=== PATIENT | female | born 1990 | race Caucasian/White ===

== ENCOUNTER 2018-08-29 19:13 | Emergency (ER) | payer OTHER ==
[~2018-08-29] VITALS: Ht 162.6 cm; Wt 58.6 kg
[2018-08-29 19:18] VITALS: Ht 162.6 cm; Wt 58.6 kg
--- NOTE | 2018-08-29 20:55 | ERD ---
ER Documentation Chief Complaint Chief Complaint L hand/wrist swelling x 3weeks,no trauma HPI This is a 27-year-old female who was brought in by here in the emergency department with complaints of left hand/wrist swelling for about 3 weeks without trauma. Patient stated that she was sent here by the urgent care that she saw today and was told that there was very urgent that she goes to the emergency department to have an ultrasound with blood works. LMP: 08/25/2018. . Denies headache, dizziness, blurred vision, neck pain, neck stiffness, difficult swallowing, difficult breathing lying flat, shoulder pain, chest pain, back pain, vomiting, nausea, vomiting, constipation, diarrhea, urinary symptoms, loss of bowel bladder control, trauma, injury, falls, recent travel, recent long travel, recent exposure to any illness, recent antibiotic use in the restroom, fever, chills, seizures, numbness or tingling vision, calf pains. Past medical history of lupus/SLE. Surgical history: Denies. Medication: Plaqu enil. Denies smoking, use of alcoholic beverages, use of illegal drugs. ROS All systems reviewed and are negative except as per history of present illness. Medications Home Meds Active Scripts Ibuprofen* (Motrin*) 600 Mg Tab, 600 MG PO Q6H PRN for PAIN AND OR ELEVATED TEMP, #20 TAB Prov:NOEL RODRIGUEZ 08/29/18 Allergies Allergies: Coded Allergies: No Known Allergy (Unverified , 08/29/18) PMhx/Soc History of Surgery: Yes (bilateral eye surgery) Hx Miscellaneous Medical Probl: Yes (lupus) Hx Alcohol Use: No Hx Substance Use: No Hx Tobacco Use: No Smoking Status: Never smoker Physical Exam Vitals Vital Signs Date Temp Pulse Resp B/P (MAP) Pulse Ox O2 O2 Flow FiO2 Time Delivery Rate 08/29/18 98.5 74 18 110/75 19 Room Air 22:57 (87) 08/29/18 98.5 80 18 142/88 98 19:18 (106) Physical Exam Const: No acute distress Head: Atraumatic Eyes: Normal Conjunctiva ENT: Normal External Ears, Nose and Mouth. Neck: Full range of motion. No meningismus. Resp: Clear to auscultation bilaterally Cardio: Regular rate and rhythm, no murmurs Abd: Soft, non tender, non distended. Normal bowel sounds Skin: No petechiae or rashes Back: No midline or flank tenderness Ext: No cyanosis, or edema. Mild swelling to left upper extremity. Left radial pulse is within normal limits. Has good and full function of her left hand. Capillary refills on left upper extremity are less than 2 seconds. Right upper extremity is unremarkable. Neur: Awake and alert. No neurological deficits. Psych: Normal Mood and Affect Result Diagram: 08/29/18202308/29/182023 Results 24 hrs Laboratory Tests Test 08/29/18 20:24 White Blood Count 3.5 10^3/ul Red Blood Count 4.63 10^6/ul Hemoglobin 13.4 g/dl Hematocrit 40.6 % Mean Corpuscular Volume 87.7 fl Mean Corpuscular Hemoglobin 28.9 pg Mean Corpuscular Hemoglobin Concent 33.0 g/dl Red Cell Distribution Width 11.2 % Platelet Count 171 10^3/UL Mean Platelet Volume 10.2 fl Immature Granulocytes % 0.600 % Neutrophils % 63.2 % Lymphocytes % 28.4 % Monocytes % 7.2 % Eosinophils % 0.3 % Basophils % 0.3 % Nucleated Red Blood Cells % 0.0 /100WBC Immature Granulocytes # 0.020 10^3/ul Neutrophils # 2.2 10^3/ul Lymphocytes # 1.0 10^3/ul Monocytes # 0.3 10^3/ul Eosinophils # 0.0 10^3/ul Basophils # 0.0 10^3/ul Nucleated Red Blood Cells # 0.0 10^3/ul Erythrocyte Sedimentation Rate 10 mm/Hr Prothrombin Time 12.3 Sec Prothrombin Time Ratio 1.0 INR International Normalized Ratio 0.90 Activated Partial Thromboplast Time 30.3 Sec Sodium Level 138 mmol/L Potassium Level 4.2 mmol/L Chloride Level 102 mmol/L Carbon Dioxide Level 27 mmol/L Anion Gap 9 Blood Urea Nitrogen 13 mg/dl Creatinine 0.58 mg/dl Est Glomerular Filtrat Rate mL/min > 60 mL/min Glucose Level 85 mg/dl Calcium Level 10.0 mg/dl Total Bilirubin 0.3 mg/dl Direct Bilirubin 0.00 mg/dl Indirect Bilirubin 0.3 mg/dl Aspartate Amino Transf (AST/SGOT) 28 IU/L Alanine Aminotransferase (ALT/SGPT) 23 IU/L Alkaline Phosphatase 71 IU/L C-Reactive Protein 0.5 mg/dl Total Protein 8.7 g/dl Albumin 4.9 g/dl Globulin 3.80 g/dl Albumin/Globulin Ratio 1.28 Procedures/MDM Diagnostic tests: Ultrasound of the left upper extremity: No evidence of deep vein thrombosis within the left upper extremity veins. Blood works: Reviewed. Treatment: None. Re-evaluation: Denies pain. Left radial pulses within normal limits. Has good and full range of motion of left shoulder/elbow/wrist. Capillary refills on left upper extremities are less than 2 seconds. There is good and full function of her left hand. No neurovascular deficit. Differential diagnosis I have low suspicion for DVT, compartment syndrome, fractures, cellulitis, sepsis, Raynaud's disease, necrotizing fasciitis. Final diagnosis: Lymphedema. Prescription: Motrin for pain. Instructed to elevate extremities. Follow-up with PCP in the next 24-48 hours. Come back here in the emergency department for any new symptoms or any worsening symptoms. All questions and concerns were answered. Patient and family members verbalized understanding and agreed with plan of care. Hemodynamically stable on discharge. Departure Diagnosis: Primary Impression: Lymphedema Condition: Stable Additional Instructions: Follow-up with PCP in the next 24-48 hours. Come back here in the emergency department for any new symptoms or any worsening symptoms. NOEL RODRIGUEZ Aug 29, 2018 20:55
[2018-08-29] MEDS ORDERED: IBUP-1542 PO (22:48)
[2018-08-29 22:57] VITALS: BP 110/75; PULSE 74; RESP 18
== END 2018-08-29 22:59 | disposition home or self-care (01) ==
LOC: FTE 19:13
DX: I89.0 Lymphedema, not elsewhere classified (principal)
CPT/HCPCS: 80053; 85025; 85610; 85651; 85730; 86140; 93971